=== PATIENT | male | born 1980 | race Two or more races ===

== ENCOUNTER 2016-11-17 13:17 | Emergency (ER) | payer SELFPAY ==
[~2016-11-17] VITALS: Ht 167.6 cm; Wt 86.2 kg
[2016-11-17 13:51] VITALS: BP 155/80
[2016-11-17] MEDS: SODIUM CHLORIDE 0.9% 1,000 ML IVB ONE (14:08)
[2016-11-17] MEDS: LIDOCAINE VISCOUS 2% 15ML UD PO ONE (14:12)
[2016-11-17] MEDS: DONNATAL 5ml ORAL Elix (BELLADONNA ALK-PHENOBARB) PO ONE (14:12)
[2016-11-17] MEDS: ALUM & MAG HYDROX-SIMETH LIQ(MAALOX) 30 ML PO ONE (14:12)
[2016-11-17 14:26] LABS: Basophils # (auto) 0.1 uL; Basophils % (auto) 0.7 % (0.0-2.0); Eosinophils # (auto) 0 uL; Hematocrit 49.1 % (41.0-53.0); Hemoglobin 16.9 g/dL (13.5-17.5); Lymphocytes # (auto) 1.3 uL; Lymphocytes % (auto) 14.3 % (10.0-50.0); Mean Corpuscular Hemoglobin 29.7 pg (28.0-32.0); Mean Corpuscular Hgb Conc. 34.3 g/dL (32.0-36.0); Mean Corpuscular Volume 86.6 fL (80.0-100.0); Mean Platelet Volume 7.9 fL (7.4-10.4); Monocytes # (auto) 0.3 uL; Monocytes % (auto) 3.5 % (0.0-12.0); Neutrophils # (auto) 7.2 uL; Neutrophils % (auto) 81.5 % (37.0-80.0); Platelet Count (auto) 358 10^3/uL (140-450); Red Cell Distribution Width 14.1 % (11.6-16.0); White Blood Cell 8.8 10^3/uL (4.4-10.8)
[2016-11-17 14:48] LABS: Albumin 4.2 g/dL (3.4-5.0); Alkaline Phosphatase 87 U/L (45-117); Amylase 70 U/L (25-115); Anion Gap 12 (5-15); Aspartate Aminotransferase 797 U/L (15-37); BUN/Creatinine Ratio 12.2; Bilirubin, Total 2.9 mg/dL (0.2-1.0); Blood Urea Nitrogen 12 mg/dL (7-18); Calcium 8.9 mg/dL (8.5-10.1); Carbon Dioxide 22 mmol/L (21-32); Chloride 106 mmol/L (98-107); GFR African American 111 mL/min; GFR Non-African American 91 mL/min; Glucose 132 mg/dL (74-106); Potassium 4.6 mmol/L (3.5-5.1); Sodium 140 mmol/L (136-145); Total Protein 7.6 g/dL (6.4-8.2)
[2016-11-17] MEDS: KETOROLAC TROMETH 30 MG/ML 1ML VIAL IV ONE (15:31)
[2016-11-17 15:35] LABS: Urine Bilirubin Negative (Negative); Urine Blood Negative /uL (Negative); Urine Color Yellow (Yellow); Urine Glucose Normal (Normal); Urine Nitrite Negative (Negative); Urine RBC 1 /hpf (0 - 3); Urine Squamous Epithelial Cell FEW /hpf (<5); Urine Urobilinogen Normal (Negative); Urine pH 8.5 (5.0-8.0)
[2016-11-17 15:40] LABS: Urine Ketone 1+ (Negative)
== END 2016-11-17 16:51 | disposition home or self-care (01) ==
LOC: ER 13:38
DX: N20.0 Calculus of kidney (principal); K29.70 Gastritis, unspecified, without bleeding; K75.9 Inflammatory liver disease, unspecified; R11.2 Nausea with vomiting, unspecified
CPT/HCPCS: 36415; 74176; 80053; 81001; 82150; 83690; 84484; 85025; 86677; 93005; 96361; 96374; 99285; J1885; J7030